=== PATIENT | male | born 1980 | race Caucasian/White ===

== ENCOUNTER 2017-05-19 21:36 | Emergency (ER) | payer BC ==
[~2017-05-19] VITALS: Ht 180.3 cm; Wt 83.1 kg
[2017-05-19 22:39] LABS: HEMATOCRIT 39.9 % (38.0-50.0); HEMOGLOBIN 14.3 G/DL (12.5-16.6); MCH 32.6 PG (29.0-34.0); MCHC 35.8 G/DL (30.0-36.0); MCV 90.9 FL (86-99); PLATELET COUNT 319 K/uL (156-360); RBC DIS.WIDTH-CV 12.1 % (11.8-14.6); RBC DIS.WIDTH-SD 40.7 % (39-53); RED BLOOD COUNT 4.39 M/uL (4.00-5.50)
[2017-05-19 22:47] LABS: ALBUMIN 4.2 g/dL (3.2-4.8); CHLORIDE 101 mEq/L (99-109); POTASSIUM 3.9 mEq/L (3.7-5.4); SODIUM 138 mEq/L (136-147)
[2017-05-19 22:50] LABS: GLUCOSE 275 mg/dL (70-99); TOTAL PROTEIN 6.5 g/dL (6.4-8.3)
[2017-05-19 22:52] LABS: TOTAL BILIRUBIN 0.5 mg/dL (0.0-1.0)
[2017-05-19 22:54] LABS: ALKALINE PHOSPHATASE 111 IU/L (3-129); CREATININE 1.2 mg/dL (0.6-1.3); GFR ESTIMATE (CALCULATED) > 59 mL/min/ (58.99-99999)
[2017-05-19 22:55] LABS: AST (GOT) 26 IU/L (2-34); UREA NITROGEN (BUN) 21 mg/dL (9-23)
[2017-05-19 22:56] LABS: ALT (GPT) 27 IU/L (3-49)
[2017-05-19 23:25] LABS: APPEARANCE CLEAR ((CLEAR)); BILIRUBIN NEGATIVE; BLOOD NEGATIVE; COLOR STRAW ((YELLOW)); GLUCOSE (STRIP) >=500; KETONES NEGATIVE; LEUKOCYTES NEGATIVE; NITRITE NEGATIVE; PROTEIN (STRIP) NEGATIVE; SPECIFIC GRAVITY 1.009 (1.000-1.030); UCUL ADDED? NO; UROBILINOGEN 0.2 MG/DL (0.2-1.0)
[2017-05-19 23:28] LABS: TROP-I INTERPRETATION NEGATIVE; TROPONIN-I < 0.01 ng/mL (0.0-0.30)
[2017-05-19 23:52] VITALS: BP 143/86
[2017-05-20 00:28] LABS: AMPHETAMINE NEGATIVE (500 ng/mL); BARBITURATES NEGATIVE (200 ng/mL); BENZODIAZEPINES NEGATIVE (150 ng/mL); BUPRENORPHINE NEGATIVE (10 ng/mL); COCAINE NEGATIVE (150 ng/mL); MEDTOX DRUG SCREEN COMMENT VERIFIED BY TRAEA; METHADONE NEGATIVE (200 ng/mL); METHAMPHETAMINE NEGATIVE (500 ng/mL); OPIATES (MORPHINE) NEGATIVE (100 ng/mL); OXYCODONE NEGATIVE (100 ng/mL); PHENCYCLIDINE NEGATIVE (25 ng/mL); PROPOXYPHENE NEGATIVE (300 ng/mL); THC CANNABINOIDS NEGATIVE (50 ng/mL); TRICYCLIC ANTIDEPRESSANTS NEGATIVE (300 ng/mL)
== END 2017-05-20 00:03 | disposition home or self-care (01) ==
LOC: EME 21:36
PROVIDERS: Nurse Practitioner Family
DX: H53.8 Other visual disturbances (principal); E10.9 Type 1 diabetes mellitus without complications; Z79.4 Long term (current) use of insulin
CPT/HCPCS: 70450; 80053; 81003; 84484; 85027; 93005; 99281; 99285; J1200; J1885; J2765; J7030